=== PATIENT | female | born 1950 | race Caucasian/White ===

== ENCOUNTER → 2020-05-03 07:33 | Outpatient (CLI) | payer MEDICARE, SELFPAY ==
--- NOTE | 2020-05-03 | BRBX_PTH ---
PATIENT: ELIZABETH JAMES LOC: [facility] U#:[id number] AGE/SX: 74/F ROOM: RE05/03/[address]: Dr. Layla Kelsey MD : 1950 BED: DIS: SPEC #: [id number] RECD: 05/03/20 09:09 STATUS: ANASTACIO REJustin #: [id number] GUNNER: 05/03/20 00:[address]: Layla Kelsey DEPT: SURGICAL PATHOLOGY RECD BY: Sergio King ENTERED: 05/03/20 09:10 SP TYPE: BREAST BX OT DR: Dr. Niall Fernandez MD Tissues: Left breast, NOS Procedures: Surgery Specimen Level IV HEADER OPERATION: Left stereotactic breast biopsy PRE-OP DIAGNOSIS: Left breast 1 o'clock middle depth microcalcifications TISSUE SUBMITTED: Left breast core tissue ISCHEMIC TIME: 2 minutes FIXATION TIME: 11.5 hours MICROSCOPIC DIAGNOSIS Left breast, 1 o'clock middle depth microcalcifications, stereotactic core biopsy: Fibrocystic changes, focal adenosis and moderate to florid intraductal hyperplasia without atypia. Negative for malignancy. Focal microcalcifications. See comment. KARSTEN:avery 05/04/2020 COMMENT Correlation with clinical, radiologic findings and appropriate follow up are necessary. Case has been reviewed in consultation with Dr. Meyer who concurs with the above diagnosis. IDC:AM MICROSCOPIC DESCRIPTION Slides are reviewed. GROSS DESCRIPTION Received in fixative is one container labeled with the patient name and designated left breast. The specimen consists of multiple elongated fragments of ramey-yellow fibroadipose tissue that in aggregate measure 7.5 x 3 x 0.3 cm. The entire specimen is submitted in three cassettes. / KARSTEN:avery 05/03/2020 TC:5 CPT: 57134
--- NOTE | 2020-05-03 09:33 | OP.PCM_ITS ---
Report of Operation Date of Procedure: 05/03/20 Pre-Operative Diagnosis: abnormal calcifications seen on left breast mammograms Post-Operative Diagnosis: same Surgery/Procedure Performed:: left stereotactic breast biopsy Description of Surgical Findings:: abnormal calcifications within left breast tissue specimen noted Type of Anesthesia:: Local - 1% xylocaine Specimen's removed: left breast tissue Estimated Blood Loss (mL): minimal Description of Procedure: After informed consent was given, the patient was brought into the Breast Biopsy suite. Appropriate time out protocol was followed. The patient was placed in the prone position on the stereotactic biopsy table. The patient?s left breast was then placed in the opening at the head of the biopsy table. A deputy director of nursing compression mammogram was then obtained in the lateral view. The suspicious radiological lesion was thus identified. Stereo pictures of the lesion were then taken for XYZ coordinates. The Mammotome biopsy stylus was then positioned where it would be entering into the patient?s breast. The skin at this site was then cleansed with a surgical skin preparation. The skin and subcutaneous tissues at this site were then infiltrated with 1% xylocaine. A small skin incision was made with an 11 blade scalpel. The biopsy stylus was then positioned into the patient?s breast at the proper coordinates of depth. Using the Mammotome vacuum-assist device, several core samples of breast tissue were obtained. A specimen mammogram was the obtained. It revealed that the abnormal calcifications were within the specimen. I reviewed this personally and concluded that the tissue sampling was adequate. A hemostatic marker clip was then placed into the biopsy cavity and a deputy director of nursing film revealed that it was properly deployed. The patient was then placed in the supine position and pressure was applied to the breast until no active bleeding was noted. Steristrips were applied to reapproximate the skin. A unilateral mammogram in the CC and MLO view were then taken which revealed that the marker clip was in the same area as the previous suspicious lesion. The patient tolerated the procedure well and was discharged from the Breast Biopsy suite in good condition. - Complications none noted
== END ==
PROVIDERS: PCP Family Medicine; Referring Provider Surgery; Visit Provider Surgery
DX: N60.12 Diffuse cystic mastopathy of left breast (principal); N60.22 Fibroadenosis of left breast; N62 Hypertrophy of breast; I10 Essential (primary) hypertension; E78.5 Hyperlipidemia, unspecified; E11.9 Type 2 diabetes mellitus without complications; Z79.84 Long term (current) use of oral hypoglycemic drugs; Z79.899 Other long term (current) drug therapy; Z87.891 Personal history of nicotine dependence
CPT/HCPCS: 19081; 88305; J7050; A4648

== ENCOUNTER → 2025-03-01 | Outpatient (CLI) | payer MEDICARE, SELFPAY ==
--- NOTE | 2025-03-01 10:03 | CDU_ITS ---
Reason For Study Reason For Study: RETINOL ARTERY BRANCH OCCLUSION Rt. Velocities/BP Lt. Velocities/BP Prox CCA 89.3/19.9 cm/sec. Prox CCA 121.1/16.7 cm/sec. Mid CCA 100.3/16.3 cm/sec. Mid CCA 107.6/20.4 cm/sec. Dist CCA 105.8/25.4 cm/sec. Dist CCA 97.7/21.6 cm/sec. Prox ICA 84.6/20.8 cm/sec. Prox ICA 62.5/16.4 cm/sec. Mid ICA 107.6/29.0 cm/sec. Mid ICA 82.3/16.4 cm/sec. Dist ICA 64.7/19.1 cm/sec. Dist ICA 97.7/24.1 cm/sec. Rt. ICA/CCA = 107.6/100.3=1.1. Lt. ICA/CCA = 97.7/107.6=0.9. Prox ECA 111.7/8.6 cm/sec. Prox ECA 173.4/7.5 cm/sec. Rt. Vert. 59.4/10.3 cm/sec. Lt. Vert. 63.4/6.9 cm/sec. Right Extracranial There is intimal thickening but no significant atherosclerotic plaque noted in the right common carotid artery. There is heterogeneous, irregular atherosclerotic plaque noted in the right internal carotid artery. The atherosclerotic plaque causes acoustic shadowing. There is heterogeneous, irregular atherosclerotic plaque noted in the right external carotid artery. Antegrade flow is noted in the right vertebral artery. Left Extracranial There is homogeneous, smooth atherosclerotic plaque noted in the left common carotid artery. There is heterogeneous, irregular atherosclerotic plaque noted in the left internal carotid artery. There is intimal thickening but no significant atherosclerotic plaque noted in the left external carotid artery. Antegrade flow is noted in the left vertebral artery. Procedure Carotid Duplex [id number]. This is a Carotid Duplex examination using B-mode, color flow and specral Doppler. Exam performed in department. VL/Carotid Duplex Ultrasound Interpretation Summary Mild (<50%) stenosis right extracranial internal carotid. Mild (<50%) stenosis left extracranial internal carotid. Flow within the vertebral arteries is antegrade bilaterally. Ordering Physician: Jacobo Farmer Referring Physician: Praveen Thornton Performed By: Marilou Zepeda RDCS, RVT
== END | disposition home or self-care (01) ==
PROVIDERS: PCP Family Medicine; Referring Provider Ophthalmology; Visit Provider Ophthalmology
DX: H34.231 Retinal artery branch occlusion, right eye (principal)
CPT/HCPCS: 93880